=== PATIENT | male | born 1995 | race Caucasian/White ===

== ENCOUNTER → 2017-01-01 | Outpatient (CLI) | payer OTHER ==
[~2017-01-01] MED LIST: AZIT250T6 PO; NO DAILY MEDICATIONS
== END ==
LOC: NEU 11:06
PROVIDERS: ATTEND Physician Assistant Surgical
DX: M79.602 Pain in left arm (principal); R20.0 Anesthesia of skin
CPT/HCPCS: 95886; 95909